=== PATIENT | female | born 1955 | race Caucasian/White ===

== ENCOUNTER → 2020-04-17 11:48 | Outpatient (BNVA) | payer BC, SELFPAY | PROVIDERS: Family Provider Family Medicine; PCP Family Medicine; Visit Provider Family Medicine | DX: I10 Essential (primary) hypertension (principal); Z12.31 Encounter for screening mammogram for malignant neoplasm of breast | CPT/HCPCS: 80053; 80061; 82044; 85025 ==

== ENCOUNTER → 2020-10-17 11:59 | Outpatient (BNVA) | payer MEDICARE, SELFPAY | PROVIDERS: Family Provider Family Medicine; PCP Family Medicine; Visit Provider Family Medicine | DX: R35.0 Frequency of micturition (principal); I10 Essential (primary) hypertension | CPT/HCPCS: 80053; 81000 ==

== ENCOUNTER → 2021-11-29 12:17 | Outpatient (BNVA) | payer MEDICARE, SELFPAY | PROVIDERS: Family Provider Family Medicine; PCP Family Medicine; Visit Provider Family Medicine | DX: R31.9 Hematuria, unspecified (principal); I10 Essential (primary) hypertension; R53.83 Other fatigue; F17.211 Nicotine dependence, cigarettes, in remission; Z68.1 Body mass index [BMI] 19.9 or less, adult | CPT/HCPCS: 80053; 80061; 81003; 82043; 84443; 85025 ==

== ENCOUNTER → 2021-12-12 08:26 | Outpatient (BNVA) | payer SELFPAY | PROVIDERS: Family Provider Family Medicine; PCP Family Medicine; Visit Provider Nurse Practitioner Family | DX: R31.0 Gross hematuria (principal); R39.15 Urgency of urination; N30.90 Cystitis, unspecified without hematuria | CPT/HCPCS: 81003; 87086; 88112 ==

== ENCOUNTER → 2022-01-14 08:42 | Outpatient (BNVA) | payer MEDICARE, SELFPAY | PROVIDERS: Family Provider Family Medicine; PCP Family Medicine; Visit Provider Nurse Practitioner Family | DX: N30.90 Cystitis, unspecified without hematuria (principal); R39.15 Urgency of urination; R35.0 Frequency of micturition; R31.0 Gross hematuria | CPT/HCPCS: 81003 ==

== ENCOUNTER 2022-02-26 12:02 | Outpatient (CLI) | payer MEDICARE, SELFPAY ==
--- NOTE | 2022-02-26 12:15 | CTR_ITS ---
PROCEDURE INFORMATION: Exam: CT Abdomen And Pelvis Without And With Contrast Exam date and time: 02/26/2022 1:27 PM Age: 66 years old Clinical indication: Other: Hematuria; Prior surgery; Surgery type: Hyst; Additional info: Gross hematuria, CT abd/pel wo/w contrast @ [facility] on 02/26/22 @ 12:15. Appt to TECHNIQUE: Imaging protocol: Computed tomography of the abdomen and pelvis without and with contrast. Radiation optimization: All CT scans at this facility use at least one of these dose optimization techniques: automated exposure control; mA and/or kV adjustment per patient size (includes targeted exams where dose is matched to clinical indication); or iterative reconstruction. Contrast material: OMNI 300; Contrast volume: 50 ml; Contrast route: INTRAVENOUS (IV); COMPARISON: No relevant prior studies available. RADIATION DOSE METRICS: Total DLP (mGy-cm): 1392.22 FINDINGS: Liver: Normal. No mass. Gallbladder and bile ducts: Normal. No calcified stones. No ductal dilation. Pancreas: Normal. No ductal dilation. Spleen: Normal. No splenomegaly. Adrenal glands: Normal. No mass. Kidneys and ureters: Hypodensities in both kidneys are too small to characterize but are most likely cysts. No follow-up imaging recommended. The kidneys are otherwise unremarkable. Normal excretion of contrast. No calculus or hydronephrosis. Stomach and bowel: Unremarkable. No obstruction. No mucosal thickening. Appendix: The appendix is visualized and is normal. Intraperitoneal space: Unremarkable. No free air. No significant fluid collection. Vasculature: Arterial calcifications. No aneurysm. Lymph nodes: Unremarkable. No enlarged lymph nodes. Urinary bladder: Unremarkable as visualized. Reproductive: The uterus is small in size or has been partially resected. The ovaries are unremarkable. Bones/joints: Unremarkable. No acute fracture. Soft tissues: Unremarkable. Lungs: Severe emphysema. CT/CT abdomen pelvis wo/w [id number] IMPRESSION: 1. No acute finding in the abdomen or pelvis. COMMENTS: Consistent with the [employer]'s Incidental Findings Committee white paper (J Am Susana Radiol 2018): Any incidental renal lesion less than 1 cm or classified as too small to characterize, or any incidental cystic renal lesion characterized as simple-appearing, is likely benign. No follow-up imaging is recommended for these lesions per consensus recommendations based on imaging criteria.
[2022-02-26 13:23] LABS: Blood Urea Nitrogen 13 mg/dL (8-23); Glomerular Filtration Rate 83.7 mL/min (90-130)
[2022-02-26] MEDS: iohexol 300 mg/mL 50 mL Btl IV (13:31)
== END 2022-02-26 12:03 | disposition home or self-care (01) ==
PROVIDERS: PCP Family Medicine; Visit Provider Urology
DX: R31.0 Gross hematuria (principal); N13.30 Unspecified hydronephrosis; N30.90 Cystitis, unspecified without hematuria; R35.0 Frequency of micturition
CPT/HCPCS: 52000; 74178; 81003; 82565; 84520; 99214

== ENCOUNTER 2022-03-18 09:03 | Emergency (ER) | payer MEDICARE, SELFPAY ==
[2022-03-18] VITALS (8 sets, daily range): BP systolic 121–152; BP diastolic 78–86; PULSE 86–105; RESP 14–20; TEMP 36.8; O2SAT 91–100; BMI 14.6
--- NOTE | 2022-03-18 09:11 | XR_ITS ---
WS: [id number] Exam: XR chest 1V portable [id number] Date/Time of Exam: 03/18/2022 9:11 AM Reason For Exam: dyspnea/cough Comparison 01/01/2015. The lungs are hyperinflated and clear. Normal cardiomediastinal silhouette. Bony structures are intac t. Mild thoracic scoliosis with left convexity. XR/XR chest 1V portable [id number] IMPRESSION: 1. Pulmonary hyperinflation which might indicate obstructive lung disease. No a cute cardiopulmonary finding.
--- NOTE | 2022-03-18 09:12 | ECG_ITS ---
[facility] Test Date: 2022-03-18 Pat Name: Lisset Goff Department: Room: Gender: Female Adjuster Electrical Contacts: : 1955 Requested By: Jeff العراقي Order Number: [id number] Lizandro MD: Dolly Le M.D. Measurements Intervals [place] Rate: 105 P: 84 OR: 135 QRS: -28 QRSD: 78 T: 27 QT: 293 QTc: 389 Interpretive Statements SINUS TACHYCARDIA WITH FREQUENT SUPRAVENTRICULAR PREMATURE COMPLEXES LOW QRS VOLTAGE IN EXTREMITY LEADS [QRS DEFLECTION < 0.5 mV IN LIMB LEADS] SEPTAL MYOCARDIAL INFARCTION , PROBABLY OLD [40+ ms Q WAVE IN V1/V2] Compared to ECG 01/03/2015 12:54:03 Low QRS voltage now present Myocardial infarct finding now present Electronically Signed On 03-19-2022 17:09:34 CDT by Dolly Le M.D. [email or web address]/NU/[id number] f
[2022-03-18 09:21] LABS: Basophils % 0.4 %; Eosinophils # 0.1 10^3/uL (0.0-0.8); Eosinophils % 1.1 %; Hematocrit 44.2 % (37.0-47.0); Hemoglobin 14.8 g/dL (11.5-15.3); Lymphocytes # 1.3 10^3/uL (0.8-4.8); Lymphocytes % 12.6 %; Mean Corpuscular HGB Conc 33.5 g/dL (30.0-36.0); Mean Corpuscular Hemoglobin 30.5 pg (28.0-34.0); Mean Corpuscular Volume 91.1 fl (81-99); Mean Platelet Volume 11.4 fL (7.4-10.4); Monocytes # 0.9 10^3/uL (0.2-0.9); Monocytes % 8.8 %; Neutrophils # 7.67 10^3/uL (1.8-7.7); Neutrophils % 76.9 %; Nucleated Red Blood Cells % 0 %; Platelet Count 213 10^3/cmm (130-400); Red Blood Count 4.85 10^6/uL (4.1-5.3)
[2022-03-18 09:35] LABS: Alanine Aminotransferase 22 U/L (0-33); Albumin Level 4.8 g/dL (3.5-5.2); Alkaline Phosphatase 102 IU/L (35-105); Anion Gap 17.2 (5-19); Aspartate Amino Transferase 23 U/L (0-32); Blood Urea Nitrogen 26 mg/dL (8-23); Calcium 9.6 mg/dL (8.5-10.5); Carbon Dioxide 26 mmol/L (22-29); Chloride 102 mmol/L (98-107); Globulin 3.1 g/dL (1.3-4.6); Glucose 123 mg/dL (65-115); Osmolality Calculated 300 mOsm/kg (285-295); Potassium 3.2 mmol/L (3.5-5.1); Sodium 142 mmol/L (136-145); Total Bilirubin 0.9 mg/dL (0.15-1.2); Total Protein 7.9 g/dL (6.6-8.7)
--- NOTE | 2022-03-18 09:36 | CT_ITS ---
WS: [id number] CT ABDOMEN PELVIS TECHNIQUE: Noncontrast CT of the abdomen and pelvis with coronal and sagittal reformatted images. CLINICAL INFORMATION: Abdominal pain COMPARISON: CT February 26, 2022 DLP: 558.[address] scans at [facility] use at least one of these dose optimization techniques: automated e xposure control; mA and/or kV adjustment per patient size (includes targeted exams where dose is matc hed to clinical indication); or iterative reconstruction. FINDINGS: Lung bases are well aerated. Emphysematous changes in the lung bases. Noncontrast liver is normal. No rmal noncontrast spleen. Normal GE junction. Adrenal glands are normal. No hydronephrosis in either k idney. Fatty atrophy of the pancreas. Mild fluid dilatation of the gallbladder. No visualized calculi . This can be further evaluated ultrasound. Adrenal glands are normal. No hydronephrosis in either kidney. Normal caliber abdominal aorta. Aortic calcification. Tiny fat-containing umbilical hernia. Normal sigmoid colon. No evidence of high-grade small or large bowel obstruction. Mild lumbar curve. No acute compression. CT/CT abdomen pelvis wo con [id number] IMPRESSION: 1. Mild fluid distention of the gallbladder. No visualized cholelithiasis. Thi s can be further evaluated with ultrasound. 2. No hydronephrosis in either kidney. 3. No other acute findings.
--- NOTE | 2022-03-18 10:00 | PC.PHAR ---
pt states she takes care of her own medications-pt states she stop taking kcl gluconate about 2-3 weeks ago-pt states she is only taking the medications entered
[2022-03-18 10:28] LABS: Bilirubin Urine Neg (Negative); Blood Urine 3+ (Negative); Glucose Urine UA Norm (Normal); Ketones Urine 2+ (Negative); Nitrate Urine Negative (Negative); Protein Urine Neg (Negative); Urine Appearance Clear (CLEAR); Urine Color Yellow (Yellow); pH Urine 5 (5-7)
[2022-03-18 10:29] LABS: Add Urine Microscopic? YES; Bacteria Urine TRACE /hpf; Fine Granular Casts Urine 0-4 /lpf; Leukocyte Esterase Urine Negative (Negative); Mucus Urine 2+ /hpf; Squamous Epithelial Cell Urine 0-4 /hpf (0-5); Urobilinogen Urine 1 mg/dL (Negative); WBC Urine 0-4 /hpf (0-5)
[2022-03-18 10:30] LABS: Add Urine Culture? No
--- NOTE | 2022-03-18 10:53 | ED_ITS ---
HPI - SOB/Dyspnea General: Chief Complaint: Shortness of Breath/Dyspnea Stated Complaint: SOB Time Seen by Provider: 03/18/22 09:09 Source: patient Mode of arrival: EMS Limitations: no limitations History of Present Illness: HPI Narrative: 66-year-old female with a longstanding history of smoking recently stopped. Progressive cough for the last week moderate sputum. No fever sweats chills no vomiting or diarrhea she is requiring low-dose of oxygen patient smoked from time she was 14 till relatively recently and had stopped. She not currently on any inhaled medications. Denies any chest pain or hemoptysis. MD elicited complaint: shortness of breath and cough Pertinent past history: COPD Onset (ago): week(s) (1) Timing: constant and progressively worsening Severity: mild Exacerbating factors: exertion and coughing Relieving factors: nothing Associated symptoms: Reports chest congestion and cough; Deny abdominal pain, chest pain, diaphoresis, dizziness, extremity pain, fever(s), hemoptysis, lightheadedness, myalgias, nausea, orthopnea, palpitations, paresthesias, polydipsia, polyuria, rash, sense of impending doom, syncope or vomiting Treatment prior to arrival: none Review of Systems Const: Reports: fatigue and malaise; Denies: fever(s), chills or diaphoresis ENMT: Denies: throat pain, ear or mastoid pain, nasal discharge or nasal congestion Card: Denies: chest pain, palpitations, lightheadedness, syncope or orthopnea Resp: Reports: dyspnea, productive cough, wheezing and chest congestion; Denies: hemoptysis GI: Denies: abdominal pain, nausea or vomiting : Denies: flank pain, difficulty voiding, dysuria, urinary frequency or urinary urgency Musc: Denies: extremity pain Skin/Breast: Denies: rash or pruritus Neuro: Denies: dizziness Endo: Denies: polyuria or polydipsia PFSH ED PFSH: Medical History Chronic pain of left knee Essential hypertension Gross hematuria Surgical History H/O left knee surgery H/O tubal ligation Family History Father , at 82 Old age Mother , in her 70's No problems noted. Other CAD (coronary artery disease) Hypertension Social History Smoking and tobacco status: former smoker Alcohol intake: never Marital status: Current occupational status: unemployed History of recent travel: No Physical Exam Const: GENERAL APPEARANCE: cooperative and comfortable ORIENTATI ON/CONSCIOUSNESS: Yes awake, Yes oriented to person, Yes oriented to place and Yes oriented to time HENMT: COMMON NORMALS: normocephalic, atraumatic and hearing grossly normal bilaterally HEAD & SCALP: normocephalic and atraumatic Neck/C-Spine: COMMON NORMALS: no JVD Resp: AUSCULTATION: rhonchi and wheezes Cardio: COMMON NORMALS: no JVD and regular rhythm RATE: tachycardic RHYTHM: regular rhythm GI: COMMON NORMALS: Soft to palpation and No hepatosplenomegaly present AUSCULTATION: Yes normoactive bowel sounds PALPATION: Yes Soft to palpation, No Tenderness to palpation present (GI), No Guarding due to palpation present (GI) and Yes No hepatosplenomegaly present Extremity: COMMON NORMALS: normal to inspection, capillary refill normal, no clubbing, cyanosis or edema, no calf tenderness and no pedal edema Neuro: SENSORIUM/ORIENTATION: Yes oriented to person, Yes oriented to place and Yes oriented to time Skin: COMMON NORMALS: no rashes or lesions noted GENERAL SKIN EXAM: no rashes or lesions noted Course Vital Signs: Vital signs: Vital Signs Temperature 98.3 F 03/18/22 09:05 Pulse Rate 96 03/18/22 11:30 Respiratory Rate 20 H 03/18/22 11:30 Blood Pressure 140/85 03/18/22 11:30 Pulse Oximetry 93 03/18/22 11:30 MDM - SOB/Dyspnea Medical Decision Making Improved with nebulizers and steroids chest x-ray unremarkable discharge home with steroid taper doxycycline because she is moderately productive cough also get her set up for [facility] follow-up with her primary care doctor within the week return if she has further problems. Oxygen sats in the low 90s suspect given her COPD this is her baseline. Medical Records I reviewed the patient's medical records. Lab Data I reviewed the patient's lab results. : 03/18/22 09:06 03/18/22 09:06 Labs/Radiology: Radiology Impressions Chest X-Ray 03/18/22 09:11 IMPRESSION: 1. Pulmonary hyperinflation which might indicate obstructive lung disease. No acute cardiopulmonary finding. Abdomen/Pelvis CT 03/18/22 09:36 IMPRESSION: 1. Mild fluid distention of the gallbladder. No visualized cholelithiasis. This can be further evaluated with ultrasound. 2. No hydronephrosis in either kidney. 3. No other acute findings. Laboratory Results WBC 10.0 10^3/uL (4.0-10.0) 03/18/22 09:06 RBC 4.85 10^6/uL (4.1-5.3) 03/18/22 09:06 Hgb 14.8 g/dL (11.5-15.3) 03/18/22 09:06 Hct 44.2 % (37.0-47.0) 03/18/22 09:06 MCV 91.1 fl (81-99) 03/18/22 09:06 MCH 30.5 pg (28.0-34.0) 03/18/22 09:06 MCHC 33.5 g/dL (30.0-36.0) 03/18/22 09:06 RDW 12.0 % (12.1-15.1) L 03/18/22 09:06 Plt Count 213 10^3/cmm (130-400) 03/18/22 09:06 MPV 11.4 fL (7.4-10.4) H 03/18/22 09:06 Neut % (Auto) 76.9 % 03/18/22 09:06 Lymph % (Auto) 12.6 % 03/18/22 09:06 [place] % (Auto) 8.8 % 03/18/22 09:06 Eos % (Auto) 1.1 % 03/18/22 09:06 Baso % (Auto) 0.4 % 03/18/22 09:06 Neut # (Auto) 7.67 10^3/uL (1.8-7.7) 03/18/22 09:06 Lymph # (Auto) 1.3 10^3/uL (0.8-4.8) 03/18/22 09:06 [place]linger # (Auto) 0.9 10^3/uL (0.2-0.9) 03/18/22 09:06 Eos # (Auto) 0.1 10^3/uL (0.0-0.8) 03/18/22 09:06 Baso # (Auto) 0.0 10^3/uL (0.0-0.1) 03/18/22 09:06 Nucleated RBC % (auto) 0 % 03/18/22 09:06 Nucleated RBCs # 0.0 /100WBC 03/18/22 09:06 Sodium 142 mmol/L (136-145) 03/18/22 09:06 Potassium 3.2 mmol/L (3.5-5.1) L 03/18/22 09:06 Chloride 102 mmol/L (98-107) 03/18/22 09:06 Carbon Dioxide 26 mmol/L (22-29) 03/18/22 09:06 Anion Gap 17.2 (5-19) 03/18/22 09:06 BUN 26 mg/dL (8-23) H 03/18/22 09:06 Creatinine 0.6 mg/dL (0.5-0.9) 03/18/22 09:06 GFR Calculation 100.0 mL/min (90-130) 03/18/22 09:06 Glucose 123 mg/dL (65-115) H 03/18/22 09:06 Calculated Osmolality 300 mOsm/kg (285-295) H 03/18/22 09:06 Calcium 9.6 mg/dL (8.5-10.5) 03/18/22 09:06 Total Bilirubin 0.9 mg/dL (0.15-1.2) 03/18/22 09:06 AST 23 U/L (0-32) 03/18/22 09:06 ALT 22 U/L (0-33) 03/18/22 09:06 Alkaline Phosphatase 102 IU/L (35-105) 03/18/22 09:06 Total Protein 7.9 g/dL (6.6-8.7) 03/18/22 09:06 Albumin 4.8 g/dL (3.5-5.2) 03/18/22 09:06 Globulin 3.1 g/dL (1.3-4.6) 03/18/22 09:06 Urine Color Yellow (Yellow) 03/18/22 09:49 Urine Appearance Clear (CLEAR) 03/18/22 09:49 Urine pH 5 (5-7) 03/18/22 09:49 Ur Specific [place] 1.020 (1.005-1.030) 03/18/22 09:49 Urine Protein Neg (Negative) 03/18/22 09:49 Urine Glucose (UA) Norm (Normal) 03/18/22 09:49 Urine Ketones 2+ (Negative) H 03/18/22 09:49 Urine Blood 3+ (Negative) H 03/18/22 09:49 Urine Nitrate Negative (Negative) 03/18/22 09:49 Urine Bilirubin Neg (Negative) 03/18/22 09:49 Urine Urobilinogen 1 mg/dL (Negative) H 03/18/22 09:49 Ur Leukocyte Esterase Negative (Negative) 03/18/22 09:49 Urine RBC 5-10 /hpf (0-2) H 03/18/22 09:49 Urine WBC 0-4 /hpf (0-5) H 03/18/22 09:49 Ur Squamous Epith Cells 0-4 /hpf (0-5) H 03/18/22 09:49 Amorphous Sediment Not Reportable 03/18/22 09:49 Urine Bacteria Trace /hpf (NONE) 03/18/22 09:49 Fine Granular Casts 0-4 /lpf H 03/18/22 09:49 Urine Mucus 2+ /hpf 03/18/22 09:49 Discharge Plan Discharge Patient Disposition: Home Clinical Impression: Acute exacerbation of chronic obstructive airways disease Condition: Stable Prescriptions: New doxycycline hyclate 100 mg capsule 100 mg PO BID 10 Days Qty: 20 0RF Medrol (Jeancarlos) 4 mg tablets,dose pack See Rx Instructions .ROUTE .COMPLEX Qty: 21 0RF Rx Instructions: orally per package directions albuterol sulfate 90 mcg/actuation HFA aerosol inhaler 2 inh INHALATION Q4H PRN (Reason: shortness of breath or wheezing) Qty: 18 0RF ipratropium-albuterol 0.5 mg-3 mg(2.5 mg base)/3 mL solution for nebulization 3 ml inhalation Q4H PRN (Reason: shortness of breath or wheezing) Qty: 180 0RF No Action Norvasc 2.5 mg tablet 2.5 mg PO BEDTIME 0RF losartan 100 mg tablet 100 mg PO QAM 0RF Tylenol Ex Str Rapid Release 500 mg Tablet 1,000 mg PO Q4H PRN (Reason: Pain) 0RF Discharge Orders: Discharge ED (Routine); Ordered 03/18/22 Ordered By: Jeff Soto Other Ambulatory Orders: DME: Nebulizer with Neb Kit (Order) Location: None Selected Ordered By: Jeff Soto Referrals: Harika Montes DO [Primary Care Provider] - Patient Instructions: Opioid Safety Activity Restrictions/Additional Instructions: Follow-up with your primary care doctor within the next 3 to 4 days return to the emergency room or follow-up sooner if you have any change in symptoms. Coding Level of Care Code ED School Bus Inspector for Petty Dominguez Exam Comprehensive
[2022-03-18] MEDS: ipratropium-albuterol 3 mL Neb INHALATION (11:10)
== END 2022-03-18 12:05 | disposition home or self-care (01) ==
PROVIDERS: Emergency Provider Family Medicine; PCP Family Medicine
DX: J44.1 Chronic obstructive pulmonary disease with (acute) exacerbation (principal); F17.201 Nicotine dependence, unspecified, in remission
CPT/HCPCS: 71045; 74176; 80053; 81001; 85025; 93005; 94640; 96374; 99284; J2930

== ENCOUNTER 2023-02-22 21:25 | Emergency (ER) | payer MEDICARE, SELFPAY ==
--- NOTE | 2023-02-22 21:28 | ECG_ITS ---
[facility] Test Date: 2023-02-22 Pat Name: Lisset Goff Department: Room: Gender: Female Hi Ranger Operator: : 1955 Requested By: Brittnee Duvall Order Number: [id number] Lizandro MD: Josh Jennings M.D. Measurements Intervals [place] Rate: 57 P: 82 AK: 147 QRS: 12 QRSD: 70 T: 50 QT: 407 QTc: 398 Interpretive Statements SINUS BRADYCARDIA POSSIBLE LEFT ATRIAL ENLARGEMENT [-0.1mV P-WAVE IN V1/V2] LOW QRS VOLTAGE IN PRECORDIAL LEADS [QRS DEFLECTION < 1.0 mV IN CHEST LEADS] PROBABLE ANTERIOR MYOCARDIAL INFARCTION , OF INDETERMINATE AGE [35 ms Q WAVE IN V3/V4] Compared to ECG 03/18/2022 09:13:07 Sinus tachycardia no longer present Myocardial infarct finding still present Electronically Signed On 02-23-2023 8:01:07 CDT by Josh Jennings M.D. [id number]
--- NOTE | 2023-02-22 21:28 | XRR_ITS ---
PROCEDURE INFORMATION: Exam: XR Chest Exam date and time: 02/22/2023 9:54 PM Age: 67 years old Clinical indication: Pain; Chest pressure; Additional info: Cp TECHNIQUE: Imaging protocol: Radiologic exam of the chest. Views: 1 view. COMPARISON: CR XR chest 1V portable [id number] 03/18/2022 9:15 AM FINDINGS: Lungs: Emphysematous lung changes. Pulmonary hyperinflation. Negative for pulmonary consolidation. Pleural spaces: Unremarkable. No pleural effusion. No pneumothorax. Heart/Mediastinum: Unremarkable. No cardiomegaly. Bones/joints: Unremarkable. XR/XR chest 1V portable [id number] IMPRESSION: No acute chest pathology.
[2023-02-22 21:34] VITALS: BP 133/73; PULSE 57; RESP 18; TEMP 36.6; O2SAT 97; BMI 18.3
[2023-02-22 22:03] LABS: Basophils # 0.1 10^3/uL (0.0-0.1); Basophils % 1.1 %; Eosinophils # 0.2 10^3/uL (0.0-0.8); Eosinophils % 2.8 %; Hematocrit 43.2 % (37.0-47.0); Hemoglobin 13.7 g/dL (11.5-15.3); Mean Corpuscular HGB Conc 31.7 g/dL (30.0-36.0); Mean Corpuscular Hemoglobin 29.2 pg (28.0-34.0); Mean Corpuscular Volume 92.1 fl (81-99); Mean Platelet Volume 10.6 fL (7.4-10.4); Monocytes # 0.7 10^3/uL (0.2-0.9); Monocytes % 10.7 %; Neutrophils % 55.1 %; Nucleated Red Blood Cells % 0 %; Platelet Count 225 10^3/cmm (130-400); Red Blood Count 4.69 10^6/uL (4.1-5.3); Red Cell Distribution Width 12.5 % (12.1-15.1); White Blood Count 6.5 10^3/uL (4.0-10.0)
[2023-02-22 22:23] LABS: Troponin(5th) Baseline 6 ng/L (0-10)
[2023-02-22 22:27] LABS: Alanine Aminotransferase 23 U/L (0-33); Albumin Level 4.9 g/dL (3.5-5.2); Alkaline Phosphatase 88 U/L (35-105); Anion Gap 14.7 (5-19); Aspartate Amino Transferase 25 U/L (0-32); Blood Urea Nitrogen 15 mg/dL (8-23); Calcium 9.9 mg/dL (8.5-10.5); Carbon Dioxide 26 mmol/L (22-29); Chloride 103 mmol/L (98-107); Globulin 2.3 g/dL (1.3-4.6); Glomerular Filtration Rate 99.7 mL/min (90-130); Glucose 97 mg/dL (65-115); Osmolality Calculated 291 mOsm/kg (285-295); Potassium 3.7 mmol/L (3.5-5.1); Sodium 140 mmol/L (136-145); Total Bilirubin 0.4 mg/dL (0.15-1.2); Total Protein 7.2 g/dL (6.6-8.7)
[2023-02-22 22:43] VITALS: BP 157/89; PULSE 50; RESP 18; O2SAT 98
--- NOTE | 2023-02-22 22:46 | W.ED.CHESTPA ---
HPI - Chest Pain General: Chief Complaint: Chest Pain Stated Complaint: chest pain Time Seen by Provider: 02/22/23 22:18 Source: patient Mode of arrival: ambulatory Limitations: no limitations History of Present Illness: 67-year-old female states she had some episodic chest pains that today states pain lasts just a few minutes and is very sharp in nature. Denies any pain currently she had no nausea no diaphoresis no shortness of breath she states she does not feel like it is her heart she states the very sharp pain she states she has had some right arm pain that is been chronic in nature that is been going on for over months. Associated symptoms: Deny abdominal pain, dyspnea, fever(s), nausea or vomiting Review of Systems Const: Denies: fever(s) or chills ENMT: Denies: throat pain or dental pain Card: Reports: chest pain Resp: Denies: dyspnea GI: Denies: abdominal pain, nausea or vomiting Musc: Denies: neck pain or back pain Skin/Breast: Denies: rash Neuro: Denies: headache(s) PFSH ED PFSH: Medical History Chronic pain of left knee Essential hypertension Gross hematuria Surgical History H/O left knee surgery H/O tubal ligation Family History Father , at 82 Old age Mother , in her 70's No problems noted. Other CAD (coronary artery disease) Hypertension Social History Smoking and tobacco status: former smoker Alcohol intake: never Substance/Drug Use: never Marital status: Current occupational status: unemployed Physical Exam Const: COMMON NORMALS: no acute distress, patient oriented x3 and healthy appearing HENMT: COMMON NORMALS: normocephalic and atraumatic HEAD & SCALP: normocephalic and atraumatic Eye: COMMON NORMALS: conjunctivae normal CONJUNCTIVA: Yes conjunctivae normal Neck/C-Spine: COMMON NORMALS: full ROM and supple Chest: COMMONS NORMALS: normal inspection of the chest and normal palpation of entire chest wall Resp: COMMON NORMALS: normal respiratory effort, No retractions, No use of accessory muscles and clear to auscultation bilaterally AUSCULTATION: clear to auscultation bilaterally Cardio: COMMON NORMALS: regular rate, regular rhythm and No murmurs present (Cardio) RATE: regular rate RHYTHM: regular rhythm GI: COMMON NORMALS: Normal to inspection, nondistended, normoactive bowel sounds present, Soft to palpation, non-tender and no masses PALPATION: Yes Soft to palpation Extremity: COMMON NORMALS: normal to inspection and full ROM Neuro: COMMON NORMALS: patient oriented x3, moves all extremities and no focal motor deficits Psych: COMMON NORMALS: mental status grossly normal, Normal thought process present and cooperative THOUGHT PROCESS: Normal thought process present Skin: COMMON NORMALS: no rashes or lesions noted and no wounds GENERAL SKIN EXAM: no rashes or lesions noted Course Vital Signs: Vital signs: Vital Signs Temperature 97.8 F 02/22/23 21:34 Pulse Rate 58 L 02/22/23 23:16 Respiratory Rate 17 02/22/23 23:16 Blood Pressure 173/83 02/22/23 23:16 Pulse Oximetry 96 02/22/23 23:16 Oxygen Delivery Me thod Room Air 02/22/23 23:16 MDM - Chest Pain Medical Decision Making Patient presents for chest pains atypical in nature her initial repeat troponin here normal she has been pain-free here x-ray is normal as well she is stable for discharge she is to follow-up with PCP and return if worsening she has no signs of PE or dissection. Differential Diagnosis Unlikely acute massive pulmonary embolism or acute myocardial infarction Medical Records I reviewed the patient's medical records. Lab Data I reviewed the patient's lab results. 02/22/23 21:45 02/22/23 21:45 Radiology Impressions Chest X-Ray 02/22/23 21:28 IMPRESSION: No acute chest pathology. Laboratory Results WBC 6.5 10^3/uL (4.0-10.0) 02/22/23 21:45 RBC 4.69 10^6/uL (4.1-5.3) 02/22/23 21:45 Hgb 13.7 g/dL (11.5-15.3) 02/22/23 21:45 Hct 43.2 % (37.0-47.0) 02/22/23 21:45 MCV 92.1 fl (81-99) 02/22/23 21:45 MCH 29.2 pg (28.0-34.0) 02/22/23 21:45 MCHC 31.7 g/dL (30.0-36.0) 02/22/23 21:45 RDW 12.5 % (12.1-15.1) 02/22/23 21:45 Plt Count 225 10^3/cmm (130-400) 02/22/23 21:45 MPV 10.6 fL (7.4-10.4) H 02/22/23 21:45 Neut % (Auto) 55.1 % 02/22/23 21:45 Lymph % (Auto) 30.0 % 02/22/23 21:45 [place] % (Auto) 10.7 % 02/22/23 21:45 Eos % (Auto) 2.8 % 02/22/23 21:45 Baso % (Auto) 1.1 % 02/22/23 21:45 Neut # (Auto) 3.60 10^3/uL (1.8-7.7) 02/22/23 21:45 Lymph # (Auto) 2.0 10^3/uL (0.8-4.8) 02/22/23 21:45 [place] # (Auto) 0.7 10^3/uL (0.2-0.9) 02/22/23 21:45 Eos # (Auto) 0.2 10^3/uL (0.0-0.8) 02/22/23 21:45 Baso # (Auto) 0.1 10^3/uL (0.0-0.1) 02/22/23 21:45 Nucleated RBC % (auto) 0 % 02/22/23 21:45 Nucleated RBCs # 0.0 /100WBC 02/22/23 21:45 Sodium 140 mmol/L (136-145) 02/22/23 21:45 Potassium 3.7 mmol/L (3.5-5.1) 02/22/23 21:45 Chloride 103 mmol/L (98-107) 02/22/23 21:45 Carbon Dioxide 26 mmol/L (22-29) 02/22/23 21:45 Anion Gap 14.7 (5-19) 02/22/23 21:45 BUN 15 mg/dL (8-23) 02/22/23 21:45 Creatinine 0.6 mg/dL (0.5-0.9) 02/22/23 21:45 GFR Calculation 99.7 mL/min (90-130) 02/22/23 21:45 Glucose 97 mg/dL (65-115) 02/22/23 21:45 Calculated Osmolality 291 mOsm/kg (285-295) 02/22/23 21:45 Calcium 9.9 mg/dL (8.5-10.5) 02/22/23 21:45 Total Bilirubin 0.4 mg/dL (0.15-1.2) 02/22/23 21:45 AST 25 U/L (0-32) 02/22/23 21:45 ALT 23 U/L (0-33) 02/22/23 21:45 Alkaline Phosphatase 88 U/L (35-105) 02/22/23 21:45 Troponin T Baseline 6 ng/L (0-10) 02/22/23 21:45 Troponin T 120 Minute 6.22 ng/L (0-10) 02/22/23 23:45 Delta Troponin T 0.22 ABS# (0-10) 02/22/23 23:45 Total Protein 7.2 g/dL (6.6-8.7) 02/22/23 21:45 Albumin 4.9 g/dL (3.5-5.2) 02/22/23 21:45 Globulin 2.3 g/dL (1.3-4.6) 02/22/23 21:45 EKG Data EKG 1: I personally reviewed and interpreted this EKG as follows: EKG interpretation date: 02/22/23 EKG interpretation time: 21:33 Interpretation: sinus milton hr [address] or t wave abnormalities qrs 710 qtc 401 Discharge Plan Discharge Patient Disposition: Home Clinical Impression: Chest pain Condition: Stable Prescriptions: No Action albuterol sulfate 2.5 mg /3 mL (0.083 %) solution for nebulization 2.5 mg inhalation QID PRN (Reason: shortness of breath or wheezing) Qty: 180 3RF budesonide-formoterol [Symbicort] 160-4.5 mcg/actuation HFA aerosol inhaler 2 puff inhalation BID Qty: 10.2 2RF amlodipine 2.5 mg tablet See Rx Instructions .ROUTE .COMPLEX Qty: 90 1RF Dose Instruction: TAKE 1 TABLET BY MOUTH EVERY DAY Rx Instructions: TAKE 1 TABLET BY MOUTH EVERY DAY losartan 100 mg tablet See Rx Instructions .ROUTE .COMPLEX Qty: 90 1RF Dose Instruction: TAKE 1 TABLET BY MOUTH EVERY DAY IN THE MORNING Rx Instructions: TAKE 1 TABLET BY MOUTH EVERY DAY IN THE MORNING Tylenol Ex Str Rapid Release 500 mg Tablet 1,000 mg PO Q4H PRN (Reason: Pain) albuterol sulfate 90 mcg/actuation HFA aerosol inhaler 2 inh INHALATION Q4H PRN (Reason: shortness of breath or wheezing) Qty: 18 2RF Discharge Orders: Discharge ED (Routine); Ordered 02/23/23 Ordered By: Brittnee Duvall Referrals: Joe Costa MD [Primary Care Provider] - 1-3 days Discharge Diet: Advance as tolerated Discharge Activity: Resume usual activity Patient Instructions: Chest Pain (ED) Coding Level of Care Code ED Acquisition Manager for Petty Dominguez
[2023-02-22] MEDS: ondansetron 2 mg/ML SDV 2 mL 4 MG IVP (23:13)
[2023-02-22] MEDS: morphine 4 mg/mL SDV 1 mL IVP (23:15)
[2023-02-22 23:16] VITALS: BP 173/83; PULSE 58; RESP 17; O2SAT 96
[2023-02-23 00:49] LABS: Troponin 5 2HR 6.22 ng/L (0-10); Troponin 5 2HR Delta 0.22 ABS# (0-10)
[2023-02-23 01:20] VITALS: BP 124/74; PULSE 52; RESP 11; O2SAT 96
== END 2023-02-23 01:25 | disposition home or self-care (01) ==
PROVIDERS: Emergency Provider Emergency Medicine; PCP Family Medicine
DX: R07.89 Other chest pain (principal)
CPT/HCPCS: 36415; 71045; 80053; 84484; 85025; 93005; 96374; 96375; 99285; J2270; J2405

== ENCOUNTER 2025-03-09 08:03 | Outpatient (CLI) | payer MEDICARE, SELFPAY ==
--- NOTE | 2025-03-09 08:10 | MM_ITS ---
WS: [id number] SCREENING DIGITAL TOMOSYNTHESIS MAMMOGRAM WITH CAD HISTORY: SCREENING COMPARISON: 03/05/2019, 01/26/2018 Bilateral CC and MLO with tomosynthesis views submitted. Synthetic mammography reviewed. Computer aided detection analyzed. Breast composition: There are scattered areas of fibroglandular density. No suspicious masses, microcalcifications or architectural distortion. MM/MM scr BI tomosynthesis [id number] IMPRESSION: BI-RADS: 1 - Negative. FOLLOW UP: 1 Year Follow-up
--- NOTE | 2025-03-09 08:10 | CT_ITS ---
WS: [id number] LDCT LUNG CANCER SCREENING HISTORY: HX OF TOBACCO USE TECHNIQUE: Axial imaging performed from the apices to 1 cm below the costophrenic angles. Coronal and sagittal reformats are submitted with axial MIP series. All CT scans at [facility] use at least one of these dose optimization techniques: automated exposure control; mA and/or kV adjustment per patient size (includes targeted exams where dose is matched to clinical indication); or iterative reconstruction. DLP: 41.60 mGy.cm DIvol: Mean CTDIvol: 0.60 (mGy) COMPARISON: 01/01/2015 Diagnostic quality: Satisfactory Lungs: Marked pulmonary hyperexpansion. Biapical pleural thickening and scarring, greatest at the RIGHT apex. Mild pleural thickening and atelectasis at the lung bases. No mass or pneumonia. No endobronchial lesions. Heart: Normal size heart with no pericardial effusion.. Other findings: Moderate atherosclerosis aorta. No aneurysmal dilatation. Dilated pulmonary artery. No pathologically enlarged lymph nodes. Suprarenal aortic calcifications. Adrenal glands are not well visualized. Mild increase in thoracic kyphosis. Thoracic endplate osteophytes. CT/CT lung screening [id number] IMPRESSION: LUNG-RADS: 2-Benign Appearance or Behavior FOLLOW UP: 12 Month: Continue annual screening with LDCT OTHER FINDINGS (S MODIFIER): None.
== END 2025-03-09 08:04 | disposition home or self-care (01) ==
PROVIDERS: PCP Nurse Practitioner Family; Visit Provider Nurse Practitioner Family
DX: Z12.31 Encounter for screening mammogram for malignant neoplasm of breast (principal); Z87.891 Personal history of nicotine dependence; Z12.2 Encounter for screening for malignant neoplasm of respiratory organs; R92.323 Mammographic fibroglandular density, bilateral breasts; J92.9 Pleural plaque without asbestos; I70.0 Atherosclerosis of aorta
CPT/HCPCS: 71271; 77063; 77067

== ENCOUNTER → 2025-05-09 07:33 | Outpatient (BNVA) | payer MEDICARE, SELFPAY | PROVIDERS: PCP Nurse Practitioner Family; Referring Provider Nurse Practitioner Family; Visit Provider Internal Medicine | DX: E04.1 Nontoxic single thyroid nodule (principal); R79.89 Other specified abnormal findings of blood chemistry; F41.9 Anxiety disorder, unspecified | CPT/HCPCS: 99204 ==

== ENCOUNTER 2025-05-19 09:14 | Outpatient (CLI) | payer MEDICARE, SELFPAY ==
[2025-05-19 09:33] VITALS: BMI 14.8
--- NOTE | 2025-05-19 09:35 | ECG_ITS ---
[facility] Date: 2025-05-19 Pat Name: Lisset Goff Department: Room: Gender: Female Morning Babysitter: : 1955 Requested By: Bello Ho Order Number: [id number] Lizandro MD: BETO VALENTINE Interpretive Statements Lung unchanged pre/post procedure; Intraprocedure shortess of breath; Symptoms resoled by discharge NOTE: Please note that this is the electrocardiogram portion of the Lexiscan/Sestamibi stress test. The perfusion scan will be documented separately. DATA: Baseline heart rate was 49 beats per minute. Baseline blood pressure was 190/84 millimeters of mercury. Target heart rate was 151. Maximum heart rate achieved was 96. which was 63% of the predicted target heart rate. Maximum blood pressure was 190/84 millimeters of mercury. The reason for ending the test was completion of the protocol. The patient did not experience any symptoms. ELECTROCARDIOGRAM: BASELINE: Sinus bradycardia. Normal axis. Otherwise, no ST-T changes suggestive of ischemia noted. No arrhythmia noted. EXERCISE: After Lexiscan injection, significant inferolateral ST-T changes suggestive of ischemic noted. No arrhythmia noted. ST depression improved after 3 minutes. CONCLUSION: Please note due to baseline abnormality of the EKG specificity and sensitivity of the EKG portion of LexiScan MIBI stress test will be low 1. EKG is suggestive of ischemia 2. Lexiscan injection unremarkable. 3. Perfusion scan will be documented separately. Electronically Signed On 06-11-2025 14:09:23 CDT by BETO VALENTINE [email or web address]
--- NOTE | 2025-05-19 09:36 | NMCV_ITS ---
NM gilson perf SPECT r/s* [id number] Lisset Goff Age: 69 Gender: F : 1955 Exam Date: 05/19/2025 10:21 Ordering Phys: Bello Rosas DO Technologist: CHRISTEN Jesus Exam Location: [facility] Indications: cp STRESS TEST Please see separate stress test report in [facility] for full findings IMAGE PROTOCOL Rest/Stress 1 Lexiscan Day Radiopharmaceutical Dose (mCi) Administration Site Administered by Rest: Tc-99m 10.5 IV CHRISTEN Jesus Sestamibi Stress:Tc-99m 32.3 IV Sestamibi Rest: 19-May-2025 60 Discovery 630 Stress: 19-May-2025 15 Discovery 630 0.4mg Lexiscan. Images obtained in supine and prone position. SPECT RESULTS Technical Quality: Good Raw Data Analysis: Normal Image Corrections: No attenuation or motion correction applied Summed Stress Score: 0 Summed Rest Score: 1 Summed Difference Score: 0 PERFUSION FINDINGS SPECT images demonstrate homogeneous tracer distribution throughout the myocardium. FUNCTIONAL RESULTS (calculated via Gated SPECT) Stress Image LV EF (%): 88 Stress EDV (mL):50 TID: 0.84 Stress ESV (mL):6 FUNCTIONAL FINDINGS: There is normal left ventricular systolic function. IMPRESSIONS Myocardial perfusion imaging is normal. Sasha Gomez MD (Electronically Signed) Final Date: 27 May 2025 19:31 S
[2025-05-19] MEDS: ondansetron 2 mg/ML SDV 2 mL 4 MG IVP (11:05)
[2025-05-19 11:11] VITALS: BP 147/76; PULSE 80
== END 2025-05-19 09:15 | disposition home or self-care (01) ==
LOC: CDL 09:16
PROVIDERS: PCP Nurse Practitioner Family; Visit Provider Electrodiagnostic Medicine
DX: R07.9 Chest pain, unspecified (principal); R93.1 Abnormal findings on diagnostic imaging of heart and coronary circulation
CPT/HCPCS: 36415; 78452; 93017; 96374; 96375; A9500; J2405; J2785

== ENCOUNTER 2025-07-01 08:11 | Outpatient (CLI) | payer MEDICARE, SELFPAY ==
--- NOTE | 2025-07-01 09:15 | US_ITS ---
WS: [id number] THYROID ULTRASOUND HISTORY: thyroid nodule COMPARISON: None available. Right lobe: 0.9 cm x 1.1 cm x 4.5 cm (w x ap x l). Volume: 2.2 cm3. Small caliber thyroid. There are numerous cystic and complex cystic nodules within the thyroid. These are spongiform nodules and colloid type nodules. The largest measures 0.7 x 0.4 x 0.7 cm in the lower pole. Left lobe: 1.0 cm x 0.9 cm x 4.5 cm (w x ap x l). Volume: 1.9 cm3. Small caliber thyroid. There are multiple small cystic nodules. Combination of colloid nodules and spongiform nodules. The largest mid thyroid measures 0.6 x 0.5 x 0.5 cm. Isthmus: 0.3 cm. US/US thyroid [id number] IMPRESSION: 1. TI-RADS 2; no suspicious thyroid nodules or FNA recommended. 2. Bilateral colloid cysts and spongiform nodules.
[2025-07-01 11:48] LABS: Free T4 Free Thyroxine 1.40 ng/dL (0.82-1.77); Thyroid Stimulating Hormone 0.60 uIU/mL (0.27-4.20)
== END 2025-07-01 08:12 | disposition home or self-care (01) ==
PROVIDERS: PCP Nurse Practitioner Family; Visit Provider Internal Medicine
DX: E04.1 Nontoxic single thyroid nodule (principal)
CPT/HCPCS: 36415; 76536; 84439; 84443

== ENCOUNTER → 2025-07-11 08:06 | Outpatient (BNVA) | payer MEDICARE, SELFPAY | PROVIDERS: PCP Nurse Practitioner Family; Visit Provider Internal Medicine | DX: R79.89 Other specified abnormal findings of blood chemistry (principal); F41.9 Anxiety disorder, unspecified; E04.1 Nontoxic single thyroid nodule | CPT/HCPCS: 36415; 83516; 86376; 86800; 99214 ==